=== PATIENT | male | born 1985 | race Caucasian/White ===

== ENCOUNTER 2016-11-06 13:04 | Emergency (ER) | payer OTHER ==
[~2016-11-06] VITALS: Ht 180.3 cm; Wt 86.0 kg
[2016-11-06 13:06] VITALS: BP 138/88; PULSE 54; RESP 20; TEMP 97.3; O2SAT 99
[2016-11-06] MEDS ORDERED: ROBA500T PO (15:16)
[2016-11-06] MEDS ORDERED: IBUP800T23 PO (15:16)
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
== END 2016-11-06 15:56 | disposition home or self-care (01) ==
LOC: NETRI 13:04
DX: S00.81XA Abrasion of other part of head, initial encounter (principal); S16.1XXA Strain of muscle, fascia and tendon at neck level, initial encounter; V43.52XA Car driver injured in collision with other type car in traffic accident, initial encounter; Y93.9 Activity, unspecified; Y92.9 Unspecified place or not applicable; Y99.9 Unspecified external cause status
CPT/HCPCS: 99283